=== PATIENT | female | born 1955 | race Caucasian/White ===

== ENCOUNTER 2017-03-18 08:12 | Day surgery (SDC) | payer BC ==
[~2017-03-18 08:12] MED LIST: RINGER'S SOLUTION,LACTATED 1,000 ML IV PRN
[2017-03-18] MEDS ORDERED: RINGER'S SOLUTION,LACTATED 1,000 ML IV ONE ×2 (08:50→10:39)
[2017-03-18 11:32] VITALS: BP 114/72
--- NOTE | 2017-03-18 11:54 | OR ---
Operative Report - Dictated Report Narrative: Date: 03/18/2017 Preop dx: Screening colonoscopy Postop dx: Normal colon. Hypertrophied anal papilla. Procedure: Total colonoscopy Staff surgeon: Burke Hussein MD Anesthesia: MAC per MANAGER WELLNESS EBL: none Specimens: none Description: After informed consent and appropriate sedation the patient was placed in the left lateral decubitus position. Inspection of the anus revealed a hypertrophied anal papilla posteriorly. A flexible video colonoscope was introduced and advanced under direct vision without difficulty to the cecum. The usual landmarks were identified. Preparation was excellent and excellent views were obtained. The findings were of a normal colon with normal mucosal color, vasculature and texture throughout. No suspicious masses were seen. The patient tolerated the procedure well without apparent complications and was discharged from the endoscopy suite in stable condition.
== END 2017-03-18 08:13 | disposition home or self-care (01) ==
LOC: AMB 08:12
PROVIDERS: ATTEND Specialist
PROC: 0DJD8ZZ Inspection of Lower Intestinal Tract, Via Natural or Artificial Opening Endoscopic (ICD-10-PCS; principal; 2017-03-18 09:00)
DX: Z12.11 Encounter for screening for malignant neoplasm of colon (principal); I10 Essential (primary) hypertension; E78.5 Hyperlipidemia, unspecified; E03.9 Hypothyroidism, unspecified; Z87.891 Personal history of nicotine dependence